=== PATIENT | male | born 1955 | race Caucasian/White ===

== ENCOUNTER 2016-07-26 13:59 | Emergency (ER) | payer OTHER ==
[~2016-07-26] VITALS: Ht 177.8 cm; Wt 94.3 kg
[2016-07-26] MEDS ORDERED: SODIUM CHLORIDE FLUSH 10ML SYR IVF ONE (14:30)
[2016-07-26] MEDS ORDERED: ASPIRIN 81 MG TABLET CHEW PO ONE (14:30)
[2016-07-26 14:55] LABS: BLOOD UREA NITROGEN 13 mg/dL (7-18)
[2016-07-26 15:01] LABS: IS PT STATUS REG ER OR PRE ER? YES
[2016-07-26 16:45] VITALS: BP 129/94
== END 2016-07-26 16:48 | disposition home or self-care (01) ==
LOC: ED 16:21
DX: R07.89 Other chest pain (principal)
CPT/HCPCS: 36415; 71020; 80048; 82040; 84484; 85025; 93005